=== PATIENT | male | born 1990 | race Caucasian/White ===

== ENCOUNTER 2016-12-12 02:20 | Emergency (ER) | payer SELFPAY ==
[~2016-12-12] VITALS: Ht 170.2 cm; Wt 49.9 kg
[~2016-12-12 02:20] MED LIST: BACT800T5 PO; CEPH-460 PO; subutex SL
[2016-12-12 02:25] VITALS: BP 107/67; PULSE 120; RESP 18; TEMP 98; O2SAT 97
--- NOTE | 2016-12-12 02:35 | PD ---
HPI Chief Complaint: Laceration/Skin Injury Time Seen by Provider: 02:33 Travel History International Travel<30 days: No Contact w/Intl Traveler<30days: No Traveled to known affect area: No History of Present Illness HPI 26-year-old male presents to the emergency department by private transportation for evaluation of laceration injury to the left index finger. Patient reports 20 hours ago prior to arrival to the emergency department he was up on his roof working on some cable and lost his balance and started to fall off the roof so grabbed the gutter to prevent his fall and sustained a laceration to the distal pad of his left index finger. Patient is left-handed. Patient states he sustained no other injuries and landed on his feet. Patient states that he's been unable to get to the emergency department for evaluation as he has had no transportation. Patient states last tetanus booster was in the eighth grade. Patient denies other concerns or complaints. Patient rates his pain 9/10 in intensity. PFSH Past Medical History Narrative Medical Cellulitis; tobacco use substance use; nursing notes reviewed Social History Tobacco Use: Yes Substance Use: Yes (IV drug use) Allergies-Medications (Allergen,Severity, Reaction): Coded Allergies: No Known Allergies (Unverified , 12/12/16) Reported Meds & Prescriptions Reported Meds & Active Scripts Active Bactrim DS (Sulfamethoxazole-Trimethoprim) 800-160 Mg Tab 1 Tab PO BID Keflex (Cephalexin) 500 Mg Capsule 500 Mg PO Q6H 10 Days Reported [subutex] 8 Mg SL BID Review of Systems Except as stated in HPI: all other systems reviewed are Neg General / Constitutional: No: Fever, Chills HENT: No: Congestion Respiratory: No: Shortness of Breath Gastrointestinal: No: Vomiting Genitourinary: No: Flank Pain Musculoskeletal: Positive: Pain (left index finger) Skin: Positive Other (laceration left index finger) Neurologic: No: Weakness Hematologic/Lymphatic: No: Lymph Node Enlargement Physical Exam Narrative Gen.: Well-developed well-nourished male in no acute distress no respiratory distress Extremity: Attention left hand/left index finger palmar aspect distal digit 2.5 cm flap laceration without active bleeding or visible foreign body; also no visible neurovascular tendon injury with intact sensation, intact flexion, and extension at the DIP, PIP, and MCP. Capillary refill brisk and less than 2 seconds. No nail involvement. No deformity. Proximally radial pulse 2+ to palpation remainder upper extremity exam is neurovascularly tendon intact. Data Data Last Documented VS Vital Signs Date Time Temp Pulse Resp B/P Pulse Ox O2 Delivery O2 Flow Rate FiO2 12/12/16 02:25 98.0 120 18 107/67 97 Orders Tetanus/Diphtheria Tox Adult (Tetanus/Di (12/12/16 02:45) Wound Care (12/12/16 02:35) Finger ([id number]) (12/12/16 ) Wound Culture And Gram Stain (12/12/16 02:35) Cephalexin (Keflex) (12/12/16 03:15) Ibuprofen (Motrin) (12/12/16 03:15) [facility] Medical Decision Making Medical Screen Exam Complete: Yes Emergency Medical Condition: Yes Medical Record Reviewed: Yes Interpretation(s) Finger xr: FINDINGS: Examination of the second digit of the left hand demonstrates no evidence of fracture or dislocation. No radiopaque foreign bodies are seen. Soft tissue swelling about the 2nd digit. No radiopaque foreign bodies seen.. CONCLUSION: Osseous structures of the 2nd digit are grossly intact. Umesh Goodman MD on December 12, 2016 at 3:04 Board Certified Radiologist. This report was verified electronically. Differential Diagnosis Laceration, neurovascular injury, tendon injury, fracture, retained foreign body Narrative Course 26-year-old male presents with an extremity injury greater than 12 hours old therefore unable to suture repair the laceration. Site was cultured. One site was cleansed and soaked with diluted Betadine solution and then irrigated copiously with normal saline. Imaging reveals no radiopaque foreign body or bony abnormality. Patient's tetanus status was updated and patient was given first dose of oral antibiotic. Polysporin and bulky dressing was applied. Wound healing will be by secondary intention. Diagnosis Primary Impression: Laceration of left index finger Qualified Code: S61.211A - Laceration of left index finger without foreign body without damage to nail, initial encounter Referrals: Hand Surgeon as needed Primary Care Physician call for appointment Patient Instructions: General Instructions Additional Instructions: Keep one site clean and dry; change dressing daily Complete course of antibiotic as prescribed Take acetaminophen/Tylenol every 4 hours as needed for fever 100.4F or greater or for minor pain Take ibuprofen/Advil/Motrin 400-600 mg as often as every 6-8 hours as needed for fever 100.4F or greater or for pain associated with inflammation Follow-up with your primary care provider for wound check at 2 days and hand surgeon as needed Return to the emergency department for any concerns or change in condition Med/Other Pt SpecificInfo: Prescription(s) given Scripts Sulfamethoxazole-Trimethoprim (Bactrim DS)800-160 Mg Tab1 Tab PO BID #14 TAB Ref 0 Prov:Bing Ibarra MD 12/12/16 Cephalexin (Keflex)500 Mg [id number] Mg PO Q6H 10 Days Ref 0 Prov:Bing Ibarra MD 12/12/16 Disposition: 01 DISCHARGE HOME Condition: Stable Bing Ibarra MD Dec 12, 2016 02:35
[2016-12-12] MEDS ORDERED: TETANUS/DIPHTHERIA TOXOID ADULT 0.5 ML VIAL IM ONE (02:45)
--- NOTE | 2016-12-12 03:06 | RADRPT ---
EXAM DATE/TIME: 12/12/2016 02:43 [facility] COMPARISON: No previous studies available for comparison. INDICATIONS : Left hand, second digit laceration after fall off of ladder. MEDICAL HISTORY : None. SURGICAL HISTORY : None. ENCOUNTER: Initial ACUITY: 1 day PAIN SCORE: 8/10 LOCATION: Left hand, distal second digit. FINDINGS: Examination of the second digit of the left hand demonstrates no evidence of fracture or dislocation. No radiopaque foreign bodies are seen. Soft tissue swelling about the 2nd digit. No radiopaque fo reign bodies seen.. CONCLUSION: Osseous structures of the 2nd digit are grossly intact. Umesh Goodman MD on December 12, 2016 at 3:04 Board Certified Radiologist. This report was verified electronically.
[2016-12-12] MEDS ORDERED: CEPH-460 PO (03:12)
[2016-12-12] MEDS ORDERED: BACT800T5 PO (03:12)
[2016-12-12] MEDS ORDERED: IBUPROFEN 600 MG TAB PO ONE (03:15)
[2016-12-12] MEDS ORDERED: CEPHALEXIN MONOHYDRATE 500 MG CAP PO ONE (03:15)
== END 2016-12-12 03:44 | disposition home or self-care (01) ==
LOC: PHED 02:20
DX: S61.211A Laceration without foreign body of left index finger without damage to nail, initial encounter (principal); B95.61 Methicillin susceptible Staphylococcus aureus infection as the cause of diseases classified elsewhere; B96.89 Other specified bacterial agents as the cause of diseases classified elsewhere; Z23 Encounter for immunization; Z72.0 Tobacco use; W45.8XXA Other foreign body or object entering through skin, initial encounter
CPT/HCPCS: 73140; 86403; 87070; 87077; 87186; 87205; 90471; 90714